=== PATIENT | female | born 1945 | race Hispanic/Latino ===

== ENCOUNTER 2021-07-02 12:26 | Outpatient (CLI) | payer MEDICARE, BC | END 2021-07-02 12:27 | disposition home or self-care (01) | LOC: TBSIIMAG 12:26 | PROVIDERS: ATTEND Family Medicine | DX: M51.16 Intervertebral disc disorders with radiculopathy, lumbar region (principal); M43.07 Spondylolysis, lumbosacral region; M51.25 Other intervertebral disc displacement, thoracolumbar region; M48.061 Spinal stenosis, lumbar region without neurogenic claudication; M51.27 Other intervertebral disc displacement, lumbosacral region; M25.78 Osteophyte, vertebrae | CPT/HCPCS: 72148 ==